=== PATIENT | female | born 1985 | race Caucasian/White ===

== ENCOUNTER 2024-07-02 11:38 | Emergency (ER) | payer OTHER, SELFPAY ==
[2024-07-02 11:43] VITALS: BP 130/85
[2024-07-02 12:00] VITALS: BP 131/77
--- NOTE | 2024-07-02 12:18 | ED.GENMED ---
History of Present Illness
General
Chief Complaint: Skin Problem
Time Seen by Provider: 07/02/24 12:09
History of Present Illness
History of Present Illness:
39-year-old female presents to the emergency department for evaluation of a widespread rash that began 6 to 7 weeks ago and is progressively worsened. Initially presented on the right forearm. Denies any use of new soaps, detergents, or topical
products. No new prescription or [id number] medications. No contacts at home with similar symptoms. The rash is only mildly itchy. Denies a viral syndrome prior to the onset of symptoms
Review of Systems
Review of Systems
Allergies reviewed?: Yes
All Other Systems: ROS reviewed and negative except as documented in HPI and ROS
Phy Exam
Physical Exam
Physical Exam:
GEN: Well appearing, NAD, WDWN
HEENT: Oral mucosa moist, no scleral icterus
Cardiac: Regular rate
Lung: No respiratory distress, no tachypnea
MSK: No gross deformity or injuries
Skin: Good color, no pallor or jaundice. Widespread maculopapular/erythematous exanthem covering extremities with minimal torso involvement, no vesicular lesions or petechiae, no herald patch, no skin sloughing, no facial involvement
Neuro: AO x3, moves all extremities freely
Psych: Calm, cooperative
Course
Vital Signs
Initial and Last Documented VS:
Initial Vital Signs
Temp Pulse Resp BP Pulse Ox
98.6 F 73 16 130/85 99
07/02/24 11:43 07/02/24 11:43 07/02/24 11:43 07/02/24 11:43 07/02/24 11:43
Last Documented Vital Signs
Temp Pulse Resp BP Pulse Ox
98.6 F 78 18 131/77 98
07/02/24 11:43 07/02/24 12:00 07/02/24 12:00 07/02/24 12:00 07/02/24 12:00
MDM/Problems Addressed
MDM/Problems Addressed:
Unclear etiology, will trial a course of steroids, recommend Derm follow-up
*Critical Care Note
Total Time (30-74mins, 75-104mins- exclusive of procedures): Not Applicable
ED Attending Note
-
Portions of this chart may have been created with voice recognition software.� Occasional wrong word or��sound alike� substitutions may have occurred due to the inherent limitations of voice recognition software.
Discharge Plan
Departure
Patient Disposition: Home (Routine Discharge)
Date of Disposition: 07/02/24
Time of Disposition: 12:18
Patient with high blood pressure during this ER visit?: No
Discharge Problem:
Generalized papular rash
Instructions: Skin Rash (DC)
Prescriptions:
New
prednisone 20 mg tablet
20 mg PO DAILY Qty: 18 0RF
Rx Instructions:
60mg PO qd x 3d, then 40mg PO qd x 3d, then 20mg PO qd x 3d
Referrals:
Edwige Ronquillo, DO [Active] -
Interventions
Interventions:
*Risk Screen - Suicide Last Done: 07/02/24 11:43
*General Assessment Last Done: 07/02/24 11:43
*Neglect/Abuse Screening Last Done: 07/02/24 11:43
ED- Fall Risk Assessment Last Done: 07/02/24 12:00
*ED COVID-19 Vaccine History Last Done: 07/02/24 11:43
*Nursing Disposition Last Done: 07/02/24 12:39
ED-Skin Assessment Last Done: 07/02/24 12:00
Discharge Date and Time
Discharge Date/Time: 07/02/24 12:39
Print Language: HUNGARIAN
== END 2024-07-02 12:39 | disposition home or self-care (01) ==
LOC: EMR 11:38
PROVIDERS: EMERGENCY PHYSICIAN Emergency Medicine
DX: R23.8 Other skin changes (principal)
CPT/HCPCS: 99282

== ENCOUNTER 2025-02-07 15:00 | Emergency (ER) | payer OTHER, SELFPAY ==
[2025-02-07 15:04] VITALS: BP 105/87
[2025-02-07] MEDS: DELTASONE 50 MG PO (17:06)
[2025-02-07 17:07] VITALS: BP 135/76
--- NOTE | 2025-02-07 17:10 | ED.GENMED ---
History of Present Illness
General
Chief Complaint: Allergic Reaction
Source: patient and family
Exam Limitations: none
Time Seen by Provider: 02/07/25 16:42
Nursing documentation reviewed up to this point in time: agreed with
History of Present Illness
History of Present Illness:
Patient presents to ED secondary to sudden onset of generalized hives with shortness of breath and nausea sensation, on approximately 20 minutes after drinking homemade smoothie, consisting of number of fruits, celery, and turmeric. Patient
proceeded to take Zyrtec at home, gradual improvement in symptoms. At the time of evaluation ED, patient states that her hives have mostly resolved and denies any shortness of breath. Denies previous history of similar symptoms.
Review of Systems
Review of Systems
Allergies reviewed?: Yes
All Other Systems: ROS reviewed and negative except as documented in HPI and ROS
Constitutional: Reports no symptoms
EENT: Reports no symptoms
Respiratory: Reports trouble breathing; Denies cough
Cardiac: Reports no symptoms; Denies chest pain or syncope
ABD/GI: Reports nausea; Denies vomiting
Musculoskeletal: Reports no symptoms
Skin: Reports no symptoms
Neurological: Reports dizzy
Phy Exam
Physical Exam
Physical Exam:
Physical Exam
General: no apparent distress, not acutely ill. afebrile
Head: nc/at. eomi
Neck: supple. normal range of motion. normal posterior pharynx
Heart: s1/s2 regular rate and rhythm, no murmur.
Lungs: no acute respiratory distress. clear bilaterally
Abdomen: normal bowel sounds. not tender.
Neuro: alert and oriented x 3. no focal neurological deficits
Skin: resolving macular rash noted diffusely
Psychiatric: well kept. interactive and cooperative
Extremities: no edema. no calf tenderness.
Course
Orders/Labs/Results
Orders:
Orders
02/07/25 17:02
Prednisone [Deltasone] 50 mg PO NOW STA
Vital Signs
Initial and Last Documented VS:
Initial Vital Signs
Temp Pulse Resp BP Pulse Ox
98.1 F 85 16 105/87 98
02/07/25 15:04 02/07/25 15:04 02/07/25 15:04 02/07/25 15:04 02/07/25 15:04
Last Documented Vital Signs
Temp Pulse Resp BP Pulse Ox
98.1 F 88 18 135/76 100
02/07/25 15:04 02/07/25 17:07 02/07/25 17:07 02/07/25 17:07 02/07/25 17:07
MDM/Problems Addressed
MDM/Problems Addressed:
History and exam consistent with likely an allergic reaction, now resolving. As such, patient will be discharged home in stable condition, to the care of her mother, with prescription of EpiPen, along with referral to allergy/immunology for an
outpatient consultation.
*Critical Care Note
Total Time (30-74mins, 75-104mins- exclusive of procedures): Not Applicable
ED Attending Note
-
Portions of this chart may have been created with voice recognition software.� Occasional wrong word or��sound alike� substitutions may have occurred due to the inherent limitations of voice recognition software.
Discharge Plan
Departure
Patient Disposition: Home (Routine Discharge)
Date of Disposition: 02/07/25
Time of Disposition: 17:16
Patient with high blood pressure during this ER visit?: Yes
Condition: Good
Discharge Problem:
Allergic reaction
Instructions: Allergic reaction - ED discharge instructions
Prescriptions:
New
epinephrine [EpiPen 2-Steve] 0.3 mg/0.3 mL auto-injector
0.3 mg IM ONCE Qty: 2 0RF
No Action
prednisone 20 mg tablet
20 mg PO DAILY Qty: 18 0RF
Rx Instructions:
60mg PO qd x 3d, then 40mg PO qd x 3d, then 20mg PO qd x 3d
Referrals:
NONE,* [Family Provider] -
Jerrell Vee MD [[facility]] -
Activity Restrictions/Additional Instructions:
As discussed, please follow-up with your primary care physician and/or referred senior communications specialist for further evaluation and treatment. Your prescription has been sent electronically to [facility] pharmacy in [place].
Interventions
Interventions:
*Risk Screen - Suicide Last Done: 02/07/25 15:04
*General Assessment Last Done: 02/07/25 17:07
*Neglect/Abuse Screening Last Done: 02/07/25 17:31
*ED- Fall Risk Assessment Last Done: 02/07/25 17:07
*ED COVID-19 Vaccine History Last Done: 02/07/25 17:07
*Nursing Disposition Last Done: 02/07/25 17:31
ED- Cardiac Assessment Last Done: 02/07/25 16:58
ED- Pulmonary Assessment Last Done: 02/07/25 16:58
ED-Skin Assessment Last Done: 02/07/25 16:58
Discharge Date and Time
Discharge Date/Time: 02/07/25 17:32
Print Language: POLISH
== END 2025-02-07 17:32 | disposition home or self-care (01) ==
LOC: EMR 15:00
PROVIDERS: EMERGENCY PHYSICIAN Emergency Medicine
DX: T78.40XA Allergy, unspecified, initial encounter (principal); X58.XXXA Exposure to other specified factors, initial encounter; R03.0 Elevated blood-pressure reading, without diagnosis of hypertension
CPT/HCPCS: 99283